=== PATIENT | female | born 1995 | race Asian ===

== ENCOUNTER 2017-01-18 05:47 | Inpatient (IN) ==
--- NOTE | 2017-01-18 05:51 | HISTORY AND PHYSICAL ---
DIAGNOSIS: Intrauterine at 40 weeks previous section for repeat. CONDITION: Stable. The patient is a 21-year-old 2, para 1, with estimated date of delivery of 01/19/2017, with a of her previous delivery for breech, who had thought that she would attempt the vaginal after section; however, she is not going to deliver at this point and wants to proceed with a repeat delivery. She is without complaints. No headaches. No visual changes. No chest pain. No shortness of breath. No heart palpitations. No leaking fluid. No vaginal bleeding. PAST OBSTETRICAL HISTORY: Term , delivered via delivery due to breech. That is her only past surgical history. PAST SURGICAL HISTORY: She has no past medical history. ALLERGIES: She has no known drug allergies. MEDICATIONS: vitamins. SOCIAL HISTORY: She denies tobacco, alcohol, or drug use. FAMILY HISTORY: Significant for diabetes in her maternal grandmother and also hypertension is the same grandmother. PHYSICAL EXAMINATION: VITAL SIGNS: Weight 202, blood pressure 120/74. GENERAL APPEARANCE: She is alert and cooperative, in no distress. NECK: Supple. LUNGS: Clear. HEART: Regular sinus rhythm. ABDOMEN: Is gravid. PELVIC: Deferred. EXTREMITIES: No cyanosis, clubbing, or edema in her extremities. Her GBS is negative. Hepatitis B is negative. Rubella immune. RPR nonreactive. HIV negative. She has Rh positive blood type. GC and Chlamydia were negative. Her anatomy screen was normal and she passed her Glucola. ASSESSMENT: Term , previous delivery. PLAN: Repeat delivery. cc: Sanjiv Turcios MD
[2017-01-18] MEDS ORDERED: KEFZOL 1 GM/D5W 1 GM/50 ML IVPB IV PRN (05:56)
[2017-01-18] MEDS ORDERED: REGLAN PO ONE (05:56)
[2017-01-18] MEDS ORDERED: PEPCID PO ONE (05:56)
[2017-01-18] MEDS ORDERED: LR 1,000 ML IV SCH (05:56)
[2017-01-18 06:41] LABS: MANUAL DIFF NEEDED? NO
[2017-01-18 06:43] LABS: BASO% 0.2 % (0.0-0.8); EOS# 0.08 X1000 (0.0-0.7); EOS% 0.8 % (0.0-10.0); HEMATOCRIT 32.5 % (37.0-47.0); HEMOGLOBIN 10.5 g/dL (12.0-16.0); IMM GRAN# 0.18 X1000 (0.0-0.04); IMM GRAN% 1.9 % (0.0-0.5); LYMPH# 2.24 X1000 (1.2-3.4); LYMPH% 23.2 % (20.5-51.1); MCH 27.4 PG (27-31); MCHC 32.3 g/dL (33-37); MCV 84.9 FL (81-99); MONO# 0.92 X1000 (0.11-0.59); MONO% 9.5 % (1.7-9.3); MPV 11.3 FL (7.4-10.4); NEUT% 64.4 % (42.2-75.2); PLT 182 X1000 (130-400); RBC 3.83 XMIL (4.2-5.4)
[2017-01-18] MEDS ORDERED: PITOCIN ONE (08:03)
[2017-01-18] MEDS ORDERED: PITOCIN 20 UNITS/LR 20 UNITS/1,000 ML IV.SOLN ONE (08:03)
[2017-01-18] MEDS ORDERED: DURAMORPH ONE (08:03)
[2017-01-18] MEDS ORDERED: FENTANYL ONE (08:03)
[2017-01-18] MEDS ORDERED: EPHEDRINE ONE (08:04)
[2017-01-18] MEDS ORDERED: CYTOTEC PO PRN (10:01)
[2017-01-18] MEDS ORDERED: AMBIEN PO PRN (10:01)
[2017-01-18] MEDS ORDERED: DULCOLAX PR PRN (10:01)
[2017-01-18] MEDS ORDERED: DEMEROL PO PRN ×2 (10:01)
[2017-01-18] MEDS ORDERED: PITOCIN IM PRN (10:01)
[2017-01-18] MEDS ORDERED: HYDROXYZINE PO PRN (10:01)
[2017-01-18] MEDS ORDERED: PHENERGAN IM PRN (10:01)
[2017-01-18] MEDS ORDERED: HYDROXYZINE IM PRN (10:01)
[2017-01-18] MEDS ORDERED: NORCO-5 PO PRN (10:01)
[2017-01-18] MEDS ORDERED: BOOSTRIX VACCINE IM ONE (10:01)
[2017-01-18] MEDS ORDERED: MYLICON PO PRN (10:01)
[2017-01-18] MEDS ORDERED: PITOCIN 20 UNITS/LR 20 UNITS/1,000 ML IV.SOLN IV ONE (10:01)
[2017-01-18] MEDS ORDERED: M-M-R II VACCINE SUBQ ONE (10:01)
[2017-01-18] MEDS ORDERED: DEMEROL IM PRN (10:01)
[2017-01-18] MEDS ORDERED: NARCAN INJ PRN (10:26)
[2017-01-18] MEDS ORDERED: ZOFRAN IV PRN ×2 (10:26)
[2017-01-18] MEDS ORDERED: BENADRYL IV PRN (10:26)
[2017-01-18] MEDS ORDERED: ZOFRAN ODT PO PRN (10:26)
[2017-01-18] MEDS ORDERED: MORPHINE IV PRN (10:54)
[2017-01-18] MEDS: MYLICON PO SCH ×4 (11:59→20:25)
--- NOTE | 2017-01-18 12:17 | OPERATIVE NOTE ---
PROCEDURE DATE: 01/18/2017 PREOPERATIVE DIAGNOSES: 1. Intrauterine at term. 2. Previous section for repeat. POSTOPERATIVE DIAGNOSES: 1. Intrauterine at term. 2. Previous section for repeat. PROCEDURES PERFORMED: Repeat low transverse section. SURGEON: Sanjiv Turcios MD ANESTHESIA: Spinal. ANESTHESIOLOGIST: Elio Wills MD FINDINGS: Viable female infant, 8 and 9 scores, weight 6 pounds 8 ounces. Placenta appeared normal with 3-vessel cord. There were no complications. ESTIMATED BLOOD LOSS: 500 mL. PATHOLOGY: None. DRAINS: Muniz catheter. Please refer to Ms. Romero's records and [facility] and [facility]. She presented the morning of surgery. All questions were answered. She was brought to the operating room, where spinal anesthesia was administered. She was then placed supine. A Muniz catheter was placed she was prepped and draped in a sterile fashion. Adequate anesthesia was verified to the T10 level, and a Pfannenstiel skin incision was made underneath the old scar through the subcuticular tissue to the fascia. The fascia was cut and was extended laterally with curved Myers's. The muscle was pulled to the side. The peritoneum was opened bluntly and a bladder blade was placed. A hysterotomy incision was made in the lower uterine segment in the midline. I then extended laterally by pulling cephalad and caudad. Membranes were ruptured with clear fluid. The delivered occipitoanterior without difficulty. Once fully delivered, the cord was doubly clamped and cut. Care of the was handed over to the nursery. Cord blood was obtained. A 3-vessel cord was noted. The uterus was massaged to deliver the placenta, which delivered intact. The uterus was then exteriorized and wiped free of clots and remaining placental tissue. The hysterotomy incision was closed in a single layer with 0 Vicryl running and locking. Once this was done, inspection of the fundus, tubes, and ovaries did not reveal any abnormalities. There were no clots posterior to the uterus, so the uterus was placed back into the abdomen. Irrigation was done. No bleeding was noted. The bladder was allowed to fall into place. The peritoneum was reapproximated with 0 chromic. The muscle was plicated in the midline with the same 0 chromic. The fascia was closed with 0 Polysorb running nonlocking. The subcu tissue was irrigated and made hemostatic by electrocautery. Old scar was cut out. Kurtis fascia was reapproximated with 3-0 Vicryl and the skin was reapproximated with 4-0 Biosyn in a subcuticular stitch. All counts were correct. She was taken to the recovery room in stable condition. cc: Sanjiv Turcios MD
[2017-01-18] MEDS: PITOCIN 10 UNITS/LR 10 UNIT/1,000 ML IV.SOLN IV SCH ×2 (12:53→21:03)
[2017-01-18] MEDS: PERICOLACE PO SCH (20:25)
[2017-01-18 21:25] LABS: URINE SOURCE VOIDED
[2017-01-18 21:41] LABS: BILIRUBIN URINE NEGATIVE (NEGATIVE); BLOOD URINE NEGATIVE (NEGATIVE); CLARITY CLEAR (CLEAR); COLOR YELLOW; GLUCOSE URINE NEGATIVE (NEGATIVE); LEUKOCYTES URINE TRACE (NEGATIVE); NITRITE URINE NEGATIVE (NEGATIVE); PROTEIN URINE NEGATIVE (NEGATIVE); UROBILINOGEN URINE 1+(1 mg/dL)
[2017-01-19 06:17] LABS: MANUAL DIFF NEEDED? NO
[2017-01-19 06:23] LABS: BASO% 0.1 % (0.0-0.8); EOS# 0.08 X1000 (0.0-0.7); EOS% 0.7 % (0.0-10.0); HEMATOCRIT 33.5 % (37.0-47.0); HEMOGLOBIN 10.9 g/dL (12.0-16.0); IMM GRAN# 0.09 X1000 (0.0-0.04); IMM GRAN% 0.8 % (0.0-0.5); LYMPH# 2.56 X1000 (1.2-3.4); LYMPH% 23.8 % (20.5-51.1); MCH 27.6 PG (27-31); MCHC 32.5 g/dL (33-37); MCV 84.8 FL (81-99); MONO# 0.71 X1000 (0.11-0.59); MONO% 6.6 % (1.7-9.3); MPV 11.5 FL (7.4-10.4); PLT 156 X1000 (130-400); RBC 3.95 XMIL (4.2-5.4)
[2017-01-19] MEDS: NORCO-10 PO PRN ×2 (07:33→16:29)
[2017-01-19] MEDS: MOTRIN PO PRN ×2 (07:37→16:29)
[2017-01-19] MEDS ORDERED: LR 1,000 ML IV SCH (08:36)
[2017-01-19] MEDS: MYLICON PO SCH ×4 (08:41→20:32)
[2017-01-19] MEDS: PERICOLACE PO SCH (20:32)
[2017-01-20] MEDS: MOTRIN PO PRN ×2 (01:28→09:03)
[2017-01-20] MEDS: NORCO-10 PO PRN ×2 (01:28→09:16)
--- NOTE | 2017-01-20 07:30 | DISCHARGE SUMMARY ---
ADMISSION DATE: 01/18/2017 DISCHARGE DATE: 01/20/2017 PRINCIPAL DIAGNOSIS: Intrauterine . SECONDARY DIAGNOSIS: History of section with desire for repeat. PRINCIPLE PROCEDURE: Repeat low transverse section. HOSPITAL COURSE: Patient was admitted on 01/18/2017 for a scheduled repeat low transverse section. Procedure was performed without complications. The patient was successfully transferred to mother/baby. Patient has made an excellent postoperative recovery. She is ambulating without assistance. She is tolerating a regular diet without nausea or vomiting. Pain is well controlled on p.o. pain medications. Patient states she is ready to be discharged home on postoperative day #2. CONDITION ON DISCHARGE: Stable. ELIMINATION CAPACITY: Independent. FEEDING CAPACITY: Independent. LOCOMOTION CAPACITY: Independent. REHAB POTENTIAL: Good. PROGNOSIS: Good. DISCHARGE MEDICATIONS: Include Percocet 5/325 one or two tablets p.o. q.6 hours p.r.n. pain. DISCHARGE INSTRUCTIONS: The patient is to maintain a regular diet, physical activity as tolerated. Patient is to maintain pelvic rest x6 weeks. Patient is ordered to call or return if fever greater than 100.4, heavy vaginal bleeding, foul smelling vaginal discharge, or any other acute changes. She is to be discharged home with orders to follow up with Dr. Turcios in 1 week. cc: MD Sanjiv Arteaga MD
[2017-01-20 07:47] VITALS: BP 102/57
[2017-01-20] MEDS: MYLICON PO SCH (09:03)
== END 2017-01-20 11:18 | disposition home or self-care (01) ==
LOC: P.LD 05:47 → P.WC 10:53
PROVIDERS: ADMIT Obstetrics & Gynecology; ATTEND Obstetrics & Gynecology